=== PATIENT | female | born 1965 | race Caucasian/White ===

== ENCOUNTER 2024-12-11 10:49 | Emergency (ER) | payer BC ==
[~2024-12-11] VITALS: Ht 162.6 cm; Wt 86.2 kg
[2024-12-11 10:58] VITALS: TEMP 98.5
[2024-12-11] MEDS: KETOROLAC TROMETHAMINE 30 MG/ML VIAL IM STA (11:41)
[2024-12-11 12:35] VITALS: PULSE 74; RESP 16; O2SAT 99
== END 2024-12-11 13:06 | disposition home or self-care (01) ==
LOC: ER 11:04
DX: M79.671 Pain in right foot (principal); M77.31 Calcaneal spur, right foot; M32.9 Systemic lupus erythematosus, unspecified; G62.9 Polyneuropathy, unspecified; Z98.0 Intestinal bypass and anastomosis status
CPT/HCPCS: 73630; 73650; 99283; J1885